=== PATIENT | female | born 1945 | race Hispanic/Latino ===

== ENCOUNTER 2017-09-12 17:27 | Emergency (ER) | payer OTHER ==
[2017-09-12 18:27] LABS: EOSINOPHILS % (AUTO) 2.7 % (0.0-8.0); HEMATOCRIT 40.5 % (36-48); LYMPHOCYTES % (AUTO) 27.8 % (21.0-51.0); MEAN CORPUSCULAR HEMOGLOBIN 30.1 pg (27.0-33.0); MEAN CORPUSCULAR HGB CONC 33.7 g/dL (32.0-36.0); MEAN CORPUSCULAR VOLUME 89.4 fL (79-99); MONOCYTES % (AUTO) 9.2 % (3.0-13.0); NEUTROPHILS % (AUTO) 59.3 % (40.0-77.0); PLATELET COUNT (AUTO) 184 K/uL (130-400); RED BLOOD CELL COUNT(AUTO) 4.53 MIL/uL (4.00-5.50); RED CELL DISTRIBUTION WIDTH 13.3 % (11.0-15.5); WHITE BLOOD COUNT (AUTO) 6.9 K/uL (4.8-10.8)
[2017-09-12 18:38] LABS: APPEARANCE,URINE Clear (CLEAR); BILIRUBIN,URINE Negative (NEGATIVE); COLOR,URINE Yellow (YELLOW); GLUCOSE, URINE (UA) Negative (NEGATIVE); KETONES,URINE Negative (NEGATIVE); LEUKOCYTE ESTERASE ,URINE Negative (NEGATIVE); NITRATE,URINE Negative (NEGATIVE); OCCULT BLOOD,URINE Negative (NEGATIVE); PH,URINE 6.5 (5.0-8.0); PROTEIN,URINE Negative (NEGATIVE); UROBILINOGEN,URINE 0.2 mg/dL (0.2-1.0)
[2017-09-12 18:44] LABS: CREATININE 0.6 mg/dL (0.5-1.5); POTASSIUM 3.3 mmol/L (3.5-5.1)
[2017-09-12] MEDS ORDERED: LISINOPRIL 5 MG TABLET ONE (19:37)
[2017-09-12] MEDS ORDERED: POTASSIUM CHLORIDE 20 MEQ ERTAB PO ONE (19:38)
== END 2017-09-12 19:51 | disposition home or self-care (01) ==
LOC: EDH 17:27
DX: I16.0 Hypertensive urgency (principal); E87.6 Hypokalemia
CPT/HCPCS: 36415; 71046; 80048; 81003; 84484; 85025; 93005

== ENCOUNTER → 2024-12-26 | Emergency (ER) | payer OTHER ==
[~2024-12-26] VITALS: Ht 152.4 cm; Wt 59.9 kg
[~2024-12-26] MED LIST: DICL20GE TP
[2024-12-26 14:51] VITALS: BP 149/92; PULSE 86; RESP 18; TEMP 98.2; O2SAT 96
[2024-12-26] MEDS: ORPHENADRINE 60MG/2ML IM ONE (14:58)
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
--- NOTE | 2024-12-29 06:54 | EKG ---
[facility] Test Date: 2024-12-26 Test Time: 14:59:53 Pat Name: JUANPABLO WOMACK Department: [facility] Room: Gender: Female Supervisor Bindery: [id number] Requested By: CHUCK PIZARRO Order Number: [id number] Reading MD: Measurements Intervals [place] Rate: 74 P: 73 MA: 155 QRS: 58 QRSD: 87 T: 88 QT: 412 QTc: 456 Interpretive Statements Sinus rhythm Please click the below link to view image of tracing.
== END ==
LOC: EDH 14:33
DX: S46.912A Strain of unspecified muscle, fascia and tendon at shoulder and upper arm level, left arm, initial encounter (principal); E78.00 Pure hypercholesterolemia, unspecified; V89.2XXA Person injured in unspecified motor-vehicle accident, traffic, initial encounter; Y93.89 Activity, other specified; Y92.89 Other specified places as the place of occurrence of the external cause; Y99.8 Other external cause status
CPT/HCPCS: 93005; 96372; 99283; J2360